=== PATIENT | female | born 1950 | race Caucasian/White ===

== ENCOUNTER 2022-09-21 15:18 | Inpatient (IN) | payer OTHER ==
[2022-09-21] MEDS ORDERED: Nitroglycerin 2% Ointment 1 INCH/1 GM Packet ONE (15:53)
[2022-09-21] MEDS ORDERED: Aspirin Chewable 81 MG TAB ONE ×2 (15:53→15:55)
[2022-09-21 16:09] LABS: #Eosinphils 0.1 thou/uL (0.0-0.7); #Lymphocytes 2.1 thou/uL (1.20-3.40); #Monocytes 0.5 thou/uL (0.11-0.59); #Neutrophils 6.5 thou/uL (1.40-6.50); %Basophils 0.4 % (0.0-1.0); %Eosinophils 1.2 % (0.0-10.0); %Monocytes 5.4 % (0.0-10.0); %Neutrophils 70.1 % (42.0-75.0); Hemoglobin 16.6 g/dL (12.0-16.0); Mean Corpuscular HGB CONC 34.9 g/dL (32.0-36.0); Mean Corpuscular Hemoglobin 32.3 pg (27.0-31.0); Mean Corpuscular Volume 92.4 fl (78.0-98.0); Platelet Count 225 10x3/uL (130-400); RBC Distribution Width 13.1 % (11.5-14.5); Red Blood Cell (RBC) Count 5.14 mill/uL (4.20-5.40); White Blood Cell (WBC) Count 9.3 10x3/uL (4.8-10.8)
[2022-09-21 16:31] LABS: ALT (SGPT) 30 U/L (8-55); AST (SGOT) 27 U/L (5-34); Albumin 5.2 g/dL (3.4-4.8); Alkaline Phosphatase 103 U/L (40-110); Anion Gap 15 mmol/L (10-20); BUN (Urea Nitrogen) 18 mg/dL (9.8-20.1); Bilirubin, Total 1.5 mg/dL (0.2-1.2); CK (CPK) 165 U/L (29-168); Calc. Creatinine Clearance 0 mL/min (70-130); Calcium 9.9 mg/dL (7.8-10.44); Carbon Dioxide 25 mmol/L (23-31); Chloride 102 mmol/L (98-107); Estimated GFR 83; Globulin 3.2 g/dL (2.4-3.5); Glucose 114 mg/dL (83-110); Lipase 8 U/L (8-78); Potassium 3.6 mmol/L (3.5-5.1); Protein, Total 8.4 g/dL (5.8-8.1); Sodium 138 mmol/L (136-145)
[2022-09-21 16:59] LABS: CKMB 9.5 ng/mL (0-6.6)
[2022-09-21] MEDS ORDERED: Acetaminophen 325 MG TAB PO PRN (17:00)
[2022-09-21] MEDS ORDERED: Ondansetron ODT 4 MG TAB PO PRN (17:00)
[2022-09-21] MEDS ORDERED: Senokot S 8.6-50 MG TAB PO PRN (17:00)
[2022-09-21] MEDS ORDERED: hydrALAZINE 20 MG/ML VIAL ONE (19:08)
[2022-09-21 20:34] VITALS: BMI 27.7
[2022-09-21] MEDS: Famotidine 20 MG TAB PO SCH (21:15)
[2022-09-21] MEDS: Atorvastatin Calcium 40 MG TAB PO SCH (21:15)
[2022-09-21] MEDS: Metoprolol Tartrate 50 MG TAB PO SCH (21:15)
[2022-09-21] MEDS: Sodium Chloride 0.9% 1,000 ML IV SCH ×2 (21:16→21:17)
[2022-09-21] MEDS ORDERED: cloNIDine 0.2 MG TAB PO SCH (21:45)
[2022-09-21 22:10] LABS: Critical Call Chem Troponin I RESULT DECREASING
[2022-09-21] MEDS: Temazepam 15 MG CAP PO PRN (22:52)
[2022-09-22 00:44] LABS: Critical Call Chem Troponin I RESULT DECREASING; Troponin I 0.567 ng/mL (< 0.028)
[2022-09-22 05:26] LABS: #Basophils 0.1 thou/uL (0.0-0.2); #Eosinphils 0.1 thou/uL (0.0-0.7); #Lymphocytes 2.5 thou/uL (1.20-3.40); #Monocytes 0.6 thou/uL (0.11-0.59); #Neutrophils 3.4 thou/uL (1.40-6.50); %Basophils 0.9 % (0.0-1.0); %Eosinophils 1.8 % (0.0-10.0); %Lymphocytes 37.3 % (21.0-51.0); %Monocytes 9.1 % (0.0-10.0); %Neutrophils 50.9 % (42.0-75.0); Hemoglobin 13.8 g/dL (12.0-16.0); Mean Corpuscular HGB CONC 34.7 g/dL (32.0-36.0); Mean Corpuscular Hemoglobin 32.7 pg (27.0-31.0); Mean Corpuscular Volume 94.4 fl (78.0-98.0); Mean Platelet Volume 7.2 fL (7.4-10.4); Platelet Count 193 10x3/uL (130-400); RBC Distribution Width 12.9 % (11.5-14.5); Red Blood Cell (RBC) Count 4.21 mill/uL (4.20-5.40); White Blood Cell (WBC) Count 6.7 10x3/uL (4.8-10.8)
[2022-09-22] MEDS: Levothyroxine Sodium 25 MCG TAB PO SCH (05:55)
[2022-09-22 06:07] LABS: ALT (SGPT) 20 U/L (8-55); AST (SGOT) 18 U/L (5-34); Albumin 3.7 g/dL (3.4-4.8); Alkaline Phosphatase 72 U/L (40-110); Anion Gap 11 mmol/L (10-20); BUN (Urea Nitrogen) 19 mg/dL (9.8-20.1); Bilirubin, Total 1.1 mg/dL (0.2-1.2); Calc. Creatinine Clearance 72 mL/min (70-130); Calcium 8.7 mg/dL (7.8-10.44); Carbon Dioxide 22 mmol/L (23-31); Chloride 108 mmol/L (98-107); Estimated GFR 89; Globulin 2.1 g/dL (2.4-3.5); Glucose 120 mg/dL (83-110); Potassium 3.3 mmol/L (3.5-5.1); Protein, Total 5.8 g/dL (5.8-8.1); Sodium 138 mmol/L (136-145)
[2022-09-22] MEDS: cloNIDine 0.2 MG TAB PO SCH ×3 (08:09→21:43)
[2022-09-22] MEDS: Aspirin 81 mg Enteric Coated Tablet PO SCH (08:09)
[2022-09-22] MEDS: Famotidine 20 MG TAB PO SCH ×2 (08:09→21:43)
[2022-09-22] MEDS: Metoprolol Tartrate 50 MG TAB PO SCH (08:12)
[2022-09-22] MEDS ORDERED: Non-Formulary Item 1 EACH (Valsartan [Diovan] 320 MG) PO SCH (10:16)
[2022-09-22] MEDS ORDERED: Valsartan 80 MG TAB PO SCH (10:30)
[2022-09-22] MEDS ORDERED: Communication Order-Pharmacy FS SCH (13:15)
[2022-09-22] MEDS ORDERED: Amlodipine 5 MG TAB PO SCH (13:45)
[2022-09-22] MEDS: Nitroglycerin 0.4 MG TAB (25 Tab Bottle) SL PRN ×3 (16:07→16:28)
[2022-09-22] MEDS ORDERED: Non-Formulary Item 1 EACH (Icosapent Ethyl 1 GM Capsule) PO SCH (17:00)
[2022-09-22] MEDS: Icosapent Ethyl 1 GM CAPSULE PO SCH (17:28)
[2022-09-22] MEDS ORDERED: Minoxidil 2.5 MG TAB PO SCH (18:45)
[2022-09-22] MEDS: Atorvastatin Calcium 40 MG TAB PO SCH (21:42)
[2022-09-22] MEDS: Temazepam 15 MG CAP PO PRN (21:46)
[2022-09-22] MEDS: Metoprolol Tartrate 25 MG TAB PO SCH (22:17)
[2022-09-23 04:59] LABS: #Basophils 0.1 thou/uL (0.0-0.2); #Eosinphils 0.1 thou/uL (0.0-0.7); #Lymphocytes 2.5 thou/uL (1.20-3.40); #Monocytes 0.6 thou/uL (0.11-0.59); %Basophils 0.9 % (0.0-1.0); %Eosinophils 1.5 % (0.0-10.0); %Lymphocytes 40.5 % (21.0-51.0); %Monocytes 9.3 % (0.0-10.0); %Neutrophils 47.8 % (42.0-75.0); Hemoglobin 12.4 g/dL (12.0-16.0); Mean Corpuscular HGB CONC 34.9 g/dL (32.0-36.0); Mean Corpuscular Hemoglobin 32.4 pg (27.0-31.0); Mean Corpuscular Volume 92.9 fl (78.0-98.0); Mean Platelet Volume 7.3 fL (7.4-10.4); Platelet Count 170 10x3/uL (130-400); RBC Distribution Width 12.5 % (11.5-14.5); Red Blood Cell (RBC) Count 3.81 mill/uL (4.20-5.40); White Blood Cell (WBC) Count 6.2 10x3/uL (4.8-10.8)
[2022-09-23] MEDS: Levothyroxine Sodium 25 MCG TAB PO SCH (05:14)
[2022-09-23 05:23] LABS: ALT (SGPT) 14 U/L (8-55); AST (SGOT) 16 U/L (5-34); Albumin 3.5 g/dL (3.4-4.8); Alkaline Phosphatase 66 U/L (40-110); Anion Gap 10 mmol/L (10-20); BUN (Urea Nitrogen) 23 mg/dL (9.8-20.1); Bilirubin, Total 0.9 mg/dL (0.2-1.2); Calc. Creatinine Clearance 71 mL/min (70-130); Calcium 8.6 mg/dL (7.8-10.44); Carbon Dioxide 25 mmol/L (23-31); Chloride 106 mmol/L (98-107); Estimated GFR 87; Glucose 113 mg/dL (83-110); Potassium 3.4 mmol/L (3.5-5.1); Protein, Total 5.5 g/dL (5.8-8.1); Sodium 138 mmol/L (136-145)
[2022-09-23] MEDS: Icosapent Ethyl 1 GM CAPSULE PO SCH (08:32)
[2022-09-23] MEDS: Aspirin 81 mg Enteric Coated Tablet PO SCH (08:37)
[2022-09-23] MEDS: cloNIDine 0.2 MG TAB PO SCH (08:37)
[2022-09-23] MEDS: Metoprolol Tartrate 25 MG TAB PO SCH (08:38)
[2022-09-23] MEDS: Famotidine 20 MG TAB PO SCH (08:38)
[2022-09-23] MEDS ORDERED: Non-Formulary Item 1 EACH (Valsartan [Diovan] 320 MG Tablet) PO SCH (09:00)
[2022-09-23] MEDS ORDERED: Minoxidil 2.5 MG TAB PO SCH (09:00)
[2022-09-23] MEDS ORDERED: Amlodipine 5 MG TAB PO SCH (09:00)
[2022-09-23] MEDS ORDERED: Valsartan 80 MG TAB PO SCH (09:00)
[2022-09-23 13:38] VITALS: BP 141/66; TEMP 98.8
[2022-09-23] MEDS ORDERED: cloNIDine 0.2 MG TAB PO SCH (15:00)
[2022-09-23] MEDS ORDERED: ALPRAZolam 0.5 MG TAB PO SCH (21:00)
== END 2022-09-23 16:05 | disposition home or self-care (01) | DRG 282 ==
LOC: ERS 15:18 → ERHOLD 17:04 → 2SW 20:06
PROVIDERS: ADMIT Student in an Organized Health Care Education/Training Program; ATTEND Student in an Organized Health Care Education/Training Program
DX: I21.4 Non-ST elevation (NSTEMI) myocardial infarction (principal); Z20.822 Contact with and (suspected) exposure to COVID-19; I10 Essential (primary) hypertension; D75.1 Secondary polycythemia; F41.1 Generalized anxiety disorder; Z96.653 Presence of artificial knee joint, bilateral; G47.33 Obstructive sleep apnea (adult) (pediatric); I16.0 Hypertensive urgency; E78.5 Hyperlipidemia, unspecified; Z88.2 Allergy status to sulfonamides; Z82.49 Family history of ischemic heart disease and other diseases of the circulatory system; Z79.82 Long term (current) use of aspirin; Z79.899 Other long term (current) drug therapy; Z79.890 Hormone replacement therapy; Z90.710 Acquired absence of both cervix and uterus; Z90.721 Acquired absence of ovaries, unilateral; Z82.3 Family history of stroke; Z85.038 Personal history of other malignant neoplasm of large intestine
CPT/HCPCS: 36415; 71045; 80053; 82550; 82553; 83690; 83880; 84484; 85025; 93005; 96372; 96374; J0360; J1650; J7050; U0003; U0005

== ENCOUNTER 2022-10-02 03:43 | Inpatient (IN) | payer OTHER, MEDICARE ==
[2022-10-02 04:28] LABS: #Eosinphils 0.1 thou/uL (0.0-0.7); #Lymphocytes 1.4 thou/uL (1.20-3.40); #Monocytes 0.7 thou/uL (0.11-0.59); #Neutrophils 11.7 thou/uL (1.40-6.50); %Basophils 0.3 % (0.0-1.0); %Eosinophils 0.4 % (0.0-10.0); %Neutrophils 84.3 % (42.0-75.0); Mean Corpuscular HGB CONC 34.6 g/dL (32.0-36.0); Mean Corpuscular Hemoglobin 31.7 pg (27.0-31.0); Mean Corpuscular Volume 91.6 fl (78.0-98.0); Mean Platelet Volume 7.3 fL (7.4-10.4); Platelet Count 246 10x3/uL (130-400); Red Blood Cell (RBC) Count 4.42 mill/uL (4.20-5.40); White Blood Cell (WBC) Count 13.9 10x3/uL (4.8-10.8)
[2022-10-02 04:50] LABS: ALT (SGPT) 43 U/L (8-55); AST (SGOT) 22 U/L (5-34); Albumin 4.6 g/dL (3.4-4.8); Alkaline Phosphatase 96 U/L (40-110); Anion Gap 15 mmol/L (10-20); BUN (Urea Nitrogen) 23 mg/dL (9.8-20.1); Bilirubin, Total 0.8 mg/dL (0.2-1.2); Calc. Creatinine Clearance 0 mL/min (70-130); Calcium 9.8 mg/dL (7.8-10.44); Carbon Dioxide 25 mmol/L (23-31); Chloride 102 mmol/L (98-107); Estimated GFR 77; Globulin 2.6 g/dL (2.4-3.5); Glucose 130 mg/dL (83-110); Lipase 10 U/L (8-78); Potassium 3.5 mmol/L (3.5-5.1); Protein, Total 7.2 g/dL (5.8-8.1); Sodium 138 mmol/L (136-145)
[2022-10-02] MEDS ORDERED: Nitroglycerin 2% Ointment 1 INCH/1 GM Packet ONE (05:30)
[2022-10-02] MEDS ORDERED: Ondansetron PF 4 MG/2 ML Vial ONE (05:30)
[2022-10-02] MEDS ORDERED: Aspirin Chewable 81 MG TAB ONE (05:30)
[2022-10-02 05:38] LABS: CKMB 1.9 ng/mL (0-6.6)
[2022-10-02 05:50] LABS: Bilirubin Negative (Negative); Blood, Urine Negative (Negative); Clarity Turbid (Clear); Glucose, Urine (Dipstick) Normal (Negative); Ketone, Urine Negative (Negative); Leukocyte Negative Leu/uL (Negative); Nitrite Negative (Negative); Protein, Urine (Dipstick) Negative (Neg-Trace); Specific Gravity, Urine 1.008 (1.002-1.036); Urobilinogen Normal mg/dL (Less than 2); pH, Urine 7.5 (5.0-9.0)
[2022-10-02 08:25] LABS: Critical Call Chem Troponin I RESULT DECREASING; Troponin I 1.293 ng/mL (< 0.028)
[2022-10-02] MEDS ORDERED: Nitroglycerin 0.4 MG TAB (25 Tab Bottle) SL PRN (09:13)
[2022-10-02] MEDS ORDERED: Heparin 10,000 UNITS/ 10 ML VIAL SLOW IVP SCH (09:15)
[2022-10-02] MEDS ORDERED: Heparin 25,000 units/D5W 500 ML IVPB SCH (09:15)
[2022-10-02 09:55] LABS: Hemoglobin 15.1 g/dL (12.0-16.0); Platelet Count 284 10x3/uL (130-400)
[2022-10-02 10:38] LABS: Troponin I 1.433 ng/mL (< 0.028)
[2022-10-02] MEDS ORDERED: Amlodipine 5 MG TAB PO SCH (11:00)
[2022-10-02] MEDS ORDERED: Minoxidil 2.5 MG TAB PO SCH (11:00)
[2022-10-02] MEDS ORDERED: Valsartan 80 MG TAB PO SCH (11:00)
[2022-10-02] MEDS ORDERED: Metoprolol Tartrate 25 MG TAB PO SCH ×2 (11:00→21:00)
[2022-10-02 12:36] VITALS: BMI 28.0
[2022-10-02] MEDS: cloNIDine 0.1 MG TAB PO SCH ×2 (15:51→19:47)
[2022-10-02] MEDS ORDERED: Communication Order-Pharmacy FS SCH (16:00)
[2022-10-02] MEDS ORDERED: Atorvastatin Calcium 40 MG TAB PO SCH (21:00)
[2022-10-03] MEDS: cloNIDine 0.1 MG TAB PO SCH ×2 (05:14→15:46)
[2022-10-03] MEDS: Sodium Chloride 0.9% 1,000 ML IV SCH ×2 (05:18→19:20)
[2022-10-03 05:23] LABS: Cardiac Risk 3.4 (Less than 4.5)
[2022-10-03] MEDS ORDERED: Levothyroxine Sodium 25 MCG TAB PO SCH (06:00)
[2022-10-03] MEDS ORDERED: Heparin 10,000 UNITS/ 10 ML VIAL ONE (06:27)
[2022-10-03] MEDS ORDERED: Verapamil 5 MG/2 ML VIAL ONE ×2 (06:27→06:38)
[2022-10-03] MEDS ORDERED: Lidocaine 1% (PF) 30 ML VIAL ONE (06:28)
[2022-10-03] MEDS ORDERED: Nitroglycerin 100MG/250ML BOT 250 ML ONE (06:28)
[2022-10-03] MEDS ORDERED: Midazolam HCl 2 mg/2 ml Vial ONE (06:30)
[2022-10-03] MEDS ORDERED: FENTANYL 50 MCG/ML 1 ML VIAL ONE (06:30)
[2022-10-03] MEDS ORDERED: Atropine Sulfate 1 mg/10 ml Syringe ONE (07:43)
[2022-10-03] MEDS ORDERED: TICAGRELOR 90 MG TABLET ONE ×2 (07:51)
[2022-10-03] MEDS ORDERED: TICAGRELOR 90 MG TABLET PO SCH ×2 (08:58→21:00)
[2022-10-03] MEDS ORDERED: Aspirin 81 mg Enteric Coated Tablet PO SCH (09:00)
[2022-10-03] MEDS ORDERED: Minoxidil 2.5 MG TAB PO SCH (09:00)
[2022-10-03] MEDS ORDERED: Amlodipine 10 MG TAB PO SCH (09:00)
[2022-10-03] MEDS ORDERED: Aspirin Chewable 81 MG TAB PO SCH (09:00)
[2022-10-03] MEDS ORDERED: Valsartan 80 MG TAB PO SCH (09:00)
[2022-10-03 19:07] VITALS: BP 140/65; TEMP 98.9
[2022-10-05] MEDS ORDERED: FLU VACC QS2022-23(65YR UP)/PF 240 MCG/0.7 ML SYRINGE IM ONE (16:00)
== END 2022-10-03 19:52 | disposition home or self-care (01) | DRG 247 ==
LOC: ERS 03:43 → ERHOLD 05:54 → 2SW 11:44
PROVIDERS: ADMIT Internal Medicine; ATTEND Internal Medicine
PROC: 027136Z Dilation of Coronary Artery, Two Arteries with Three Drug-eluting Intraluminal Devices, Percutaneous Approach (ICD-10-PCS; principal; 2022-10-03)
PROC: 02C03ZZ Extirpation of Matter from Coronary Artery, One Artery, Percutaneous Approach (ICD-10-PCS; 2022-10-03)
PROC: 4A023N7 Measurement of Cardiac Sampling and Pressure, Left Heart, Percutaneous Approach (ICD-10-PCS; 2022-10-03)
PROC: B2151ZZ Fluoroscopy of Left Heart using Low Osmolar Contrast (ICD-10-PCS; 2022-10-03)
PROC: B2111ZZ Fluoroscopy of Multiple Coronary Arteries using Low Osmolar Contrast (ICD-10-PCS; 2022-10-03)
DX: I21.4 Non-ST elevation (NSTEMI) myocardial infarction (principal); Z20.822 Contact with and (suspected) exposure to COVID-19; I25.10 Atherosclerotic heart disease of native coronary artery without angina pectoris; I10 Essential (primary) hypertension; E78.5 Hyperlipidemia, unspecified; R11.0 Nausea; R00.1 Bradycardia, unspecified; Z88.2 Allergy status to sulfonamides; Z79.899 Other long term (current) drug therapy; Z79.82 Long term (current) use of aspirin
CPT/HCPCS: 36415; 74176; 80053; 80061; 81003; 82550; 82553; 83690; 84484; 85025; 85347; 85730; 93005; 93010; 96372; 96374; C1757; C1769; C1874; C1887; J0461; J1644; J1650; J2001; J2250; J2405; J3010; J7050; U0003; U0005

== ENCOUNTER 2023-01-24 19:19 | Inpatient (IN) | payer MEDICARE, OTHER ==
[2023-01-24 20:00] LABS: #Eosinphils 0.1 thou/uL (0.0-0.7); #Monocytes 0.6 thou/uL (0.11-0.59); #Neutrophils 6.8 thou/uL (1.40-6.50); %Basophils 0.3 % (0.0-1.0); %Eosinophils 0.6 % (0.0-10.0); %Monocytes 6.6 % (0.0-10.0); %Neutrophils 77.2 % (42.0-75.0); Hemoglobin 12.8 g/dL (12.0-16.0); Mean Corpuscular Hemoglobin 28.9 pg (27.0-31.0); Mean Corpuscular Volume 84.9 fl (78.0-98.0); Mean Platelet Volume 9.7 fL (7.4-10.4); Platelet Count 200 10x3/uL (130-400); RBC Distribution Width 13.2 % (11.5-14.5); Red Blood Cell (RBC) Count 4.43 mill/uL (4.20-5.40); White Blood Cell (WBC) Count 8.8 10x3/uL (4.8-10.8)
[2023-01-24] MEDS ORDERED: hydrALAZINE 20 MG/ML VIAL ONE (20:24)
[2023-01-24 20:26] LABS: ALT (SGPT) 20 U/L (8-55); AST (SGOT) 16 U/L (5-34); Albumin 4.6 g/dL (3.4-4.8); Alkaline Phosphatase 74 U/L (40-110); Anion Gap 14 mmol/L (10-20); BUN (Urea Nitrogen) 17 mg/dL (9.8-20.1); Calc. Creatinine Clearance 0 mL/min (70-130); Calcium 9.6 mg/dL (7.8-10.44); Carbon Dioxide 26 mmol/L (23-31); Chloride 104 mmol/L (98-107); Estimated GFR 77; Globulin 2.5 g/dL (2.4-3.5); Glucose 102 mg/dL (83-110); Potassium 3.3 mmol/L (3.5-5.1); Protein, Total 7.1 g/dL (5.8-8.1); Sodium 141 mmol/L (136-145)
[2023-01-24] MEDS ORDERED: Potassium Chloride 20 MEQ TAB ONE (21:14)
[2023-01-24] MEDS ORDERED: Potassium Bicarbonate/Cit Ac 20 MEQ TAB PO SCH (21:30)
[2023-01-24] MEDS ORDERED: LORazepam 2 MG/ML SYR.(CARPUJECT) ONE (22:04)
[2023-01-24 23:44] VITALS: BMI 27.5
[2023-01-25] MEDS ORDERED: Nitroglycerin 0.4 MG TAB (25 Tab Bottle) SL PRN (00:34)
[2023-01-25] MEDS ORDERED: Senokot S 8.6-50 MG TAB PO PRN (00:35)
[2023-01-25] MEDS ORDERED: Calcium Carbonate 500 MG ChewTAB PO PRN (00:35)
[2023-01-25] MEDS ORDERED: Ondansetron ODT 4 MG TAB PO PRN (00:35)
[2023-01-25 05:15] LABS: #Eosinphils 0.1 thou/uL (0.0-0.7); #Monocytes 0.6 thou/uL (0.11-0.59); #Neutrophils 6.3 thou/uL (1.40-6.50); %Basophils 0.5 % (0.0-1.0); %Eosinophils 0.7 % (0.0-10.0); %Lymphocytes 19.7 % (21.0-51.0); %Monocytes 7.2 % (0.0-10.0); %Neutrophils 71.3 % (42.0-75.0); Hemoglobin 12.9 g/dL (12.0-16.0); Mean Corpuscular HGB CONC 35.7 g/dL (32.0-36.0); Mean Corpuscular Hemoglobin 30.1 pg (27.0-31.0); Mean Corpuscular Volume 84.3 fl (78.0-98.0); Mean Platelet Volume 9.7 fL (7.4-10.4); Platelet Count 188 10x3/uL (130-400); RBC Distribution Width 13.2 % (11.5-14.5); Red Blood Cell (RBC) Count 4.28 mill/uL (4.20-5.40); White Blood Cell (WBC) Count 8.8 10x3/uL (4.8-10.8)
[2023-01-25 05:39] LABS: Anion Gap 13 mmol/L (10-20); BUN (Urea Nitrogen) 14 mg/dL (9.8-20.1); Calc. Creatinine Clearance 66 mL/min (70-130); Calcium 9.2 mg/dL (7.8-10.44); Carbon Dioxide 25 mmol/L (23-31); Chloride 105 mmol/L (98-107); Estimated GFR 81; Glucose 107 mg/dL (83-110); Potassium 3.2 mmol/L (3.5-5.1); Sodium 140 mmol/L (136-145)
[2023-01-25] MEDS: Levothyroxine Sodium 25 MCG TAB PO SCH (06:05)
[2023-01-25] MEDS ORDERED: Potassium Chloride 20 MEQ TAB PO SCH (08:30)
[2023-01-25] MEDS ORDERED: Potassium Bicarbonate/Cit Ac 20 MEQ TAB PO SCH (09:00)
[2023-01-25] MEDS ORDERED: Amlodipine 5 MG TAB PO SCH (09:00)
[2023-01-25] MEDS: Valsartan 80 MG TAB PO SCH (09:55)
[2023-01-25] MEDS: Aspirin 81 mg Enteric Coated Tablet PO SCH (09:56)
[2023-01-25] MEDS: Famotidine 20 MG TAB PO SCH (09:56)
[2023-01-25] MEDS: Clopidogrel Bisulfate 75 MG TAB PO SCH (09:56)
[2023-01-25] MEDS: Hydrochlorothiazide 25 MG TAB PO SCH (09:56)
[2023-01-25] MEDS: Acetaminophen 325 MG TAB PO PRN (09:56)
[2023-01-25] MEDS: cloNIDine 0.2 MG TAB PO SCH ×4 (09:56→21:27)
[2023-01-25] MEDS: Minoxidil 2.5 MG TAB PO SCH ×2 (10:01→19:15)
[2023-01-25] MEDS: hydrOXYzine 25 MG TAB PO PRN (15:12)
[2023-01-25] MEDS ORDERED: Carvedilol 6.25 MG TAB PO SCH (17:00)
[2023-01-25] MEDS: Carvedilol 6.25 MG TAB PO SCH (18:02)
[2023-01-25] MEDS: Atorvastatin Calcium 40 MG TAB PO SCH (20:22)
[2023-01-25] MEDS ORDERED: hydrOXYzine 10 MG TAB PO SCH (21:00)
[2023-01-26] MEDS: Levothyroxine Sodium 25 MCG TAB PO SCH (05:44)
[2023-01-26] MEDS: Valsartan 80 MG TAB PO SCH (08:06)
[2023-01-26] MEDS: Hydrochlorothiazide 25 MG TAB PO SCH (08:06)
[2023-01-26] MEDS: Carvedilol 6.25 MG TAB PO SCH ×2 (08:07→16:52)
[2023-01-26] MEDS: cloNIDine 0.2 MG TAB PO SCH ×3 (08:08→19:57)
[2023-01-26] MEDS: Famotidine 20 MG TAB PO SCH (08:08)
[2023-01-26] MEDS: Clopidogrel Bisulfate 75 MG TAB PO SCH (08:08)
[2023-01-26] MEDS: Aspirin 81 mg Enteric Coated Tablet PO SCH (08:08)
[2023-01-26] MEDS: Minoxidil 2.5 MG TAB PO SCH ×2 (08:17→20:00)
[2023-01-26] MEDS ORDERED: Amlodipine 10 MG TAB PO SCH (09:00)
[2023-01-26] MEDS ORDERED: Amlodipine 5 MG TAB PO SCH (09:45)
[2023-01-26] MEDS ORDERED: FELODIPINE ER 2.5 MG TAB PO SCH (10:15)
[2023-01-26] MEDS: hydrALAZINE 20 MG/ML VIAL SLOW IVP PRN (12:29)
[2023-01-26] MEDS ORDERED: hydrALAZINE 20 MG/ML VIAL SLOW IVP SCH (14:00)
[2023-01-26] MEDS: Acetaminophen 325 MG TAB PO PRN (14:08)
[2023-01-26] MEDS: hydrOXYzine 25 MG TAB PO PRN (14:09)
[2023-01-26] MEDS: Atorvastatin Calcium 40 MG TAB PO SCH (19:57)
[2023-01-26] MEDS: hydrALAZINE 25 MG TAB PO SCH (19:59)
[2023-01-27 04:53] LABS: Potassium 3.6 mmol/L (3.5-5.1)
[2023-01-27] MEDS: Levothyroxine Sodium 25 MCG TAB PO SCH (06:15)
[2023-01-27] MEDS ORDERED: Potassium Chloride 20 MEQ TAB PO SCH (07:45)
[2023-01-27] MEDS: hydrALAZINE 25 MG TAB PO SCH ×2 (08:46→19:44)
[2023-01-27] MEDS: Valsartan 80 MG TAB PO SCH (08:46)
[2023-01-27] MEDS: Carvedilol 6.25 MG TAB PO SCH ×2 (08:46→16:32)
[2023-01-27] MEDS: Aspirin 81 mg Enteric Coated Tablet PO SCH (08:47)
[2023-01-27] MEDS: Clopidogrel Bisulfate 75 MG TAB PO SCH (08:47)
[2023-01-27] MEDS: Minoxidil 2.5 MG TAB PO SCH (08:48)
[2023-01-27] MEDS: cloNIDine 0.2 MG TAB PO SCH ×3 (08:48→19:45)
[2023-01-27] MEDS: Hydrochlorothiazide 25 MG TAB PO SCH (08:49)
[2023-01-27] MEDS: Famotidine 20 MG TAB PO SCH (08:49)
[2023-01-27] MEDS: hydrOXYzine 25 MG TAB PO PRN (08:49)
[2023-01-27] MEDS: FELODIPINE ER 2.5 MG TAB PO SCH (08:50)
[2023-01-27] MEDS ORDERED: Amlodipine 5 MG TAB PO SCH (09:00)
[2023-01-27] MEDS: ALPRAZolam 0.25 MG TAB PO SCH ×3 (09:52→20:33)
[2023-01-27] MEDS: tiZANidine HCl 4 MG TAB PO SCH (19:44)
[2023-01-27] MEDS: Atorvastatin Calcium 40 MG TAB PO SCH (19:44)
[2023-01-28] MEDS: Levothyroxine Sodium 25 MCG TAB PO SCH (04:09)
[2023-01-28 05:36] LABS: Anion Gap 12 mmol/L (10-20); BUN (Urea Nitrogen) 22 mg/dL (9.8-20.1); Calc. Creatinine Clearance 56 mL/min (70-130); Carbon Dioxide 23 mmol/L (23-31); Chloride 106 mmol/L (98-107); Estimated GFR 68; Glucose 107 mg/dL (83-110); Potassium 3.7 mmol/L (3.5-5.1); Sodium 137 mmol/L (136-145)
[2023-01-28] MEDS: Carvedilol 6.25 MG TAB PO SCH ×2 (09:45→17:41)
[2023-01-28] MEDS: ALPRAZolam 0.25 MG TAB PO SCH ×3 (09:46→20:21)
[2023-01-28] MEDS: Famotidine 20 MG TAB PO SCH (09:46)
[2023-01-28] MEDS: Aspirin 81 mg Enteric Coated Tablet PO SCH (09:46)
[2023-01-28] MEDS: Clopidogrel Bisulfate 75 MG TAB PO SCH (09:46)
[2023-01-28] MEDS: tiZANidine HCl 4 MG TAB PO SCH ×2 (09:47→20:21)
[2023-01-28] MEDS: Hydrochlorothiazide 25 MG TAB PO SCH (09:47)
[2023-01-28] MEDS: Valsartan 80 MG TAB PO SCH (09:47)
[2023-01-28] MEDS: hydrALAZINE 25 MG TAB PO SCH ×2 (09:47→20:21)
[2023-01-28] MEDS: cloNIDine 0.2 MG TAB PO SCH ×3 (09:48→20:21)
[2023-01-28] MEDS: FELODIPINE ER 2.5 MG TAB PO SCH (09:53)
[2023-01-28] MEDS ORDERED: Spironolactone 25 MG TAB PO SCH (10:15)
[2023-01-28] MEDS ORDERED: Dexamethasone 1 MG TAB PO SCH ×2 (20:00)
[2023-01-28] MEDS: Atorvastatin Calcium 40 MG TAB PO SCH (20:21)
[2023-01-29] MEDS: Levothyroxine Sodium 25 MCG TAB PO SCH (03:34)
[2023-01-29] MEDS: hydrALAZINE 20 MG/ML VIAL SLOW IVP PRN (03:34)
[2023-01-29] MEDS: Carvedilol 6.25 MG TAB PO SCH (05:10)
[2023-01-29 05:39] LABS: Anion Gap 14 mmol/L (10-20); BUN (Urea Nitrogen) 19 mg/dL (9.8-20.1); Calc. Creatinine Clearance 63 mL/min (70-130); Calcium 9.4 mg/dL (7.8-10.44); Carbon Dioxide 23 mmol/L (23-31); Chloride 102 mmol/L (98-107); Estimated GFR 78; Glucose 125 mg/dL (83-110); Potassium 4.1 mmol/L (3.5-5.1); Sodium 135 mmol/L (136-145)
[2023-01-29] MEDS ORDERED: Spironolactone 25 MG TAB PO SCH (08:00)
[2023-01-29] MEDS: ALPRAZolam 0.25 MG TAB PO SCH (08:29)
[2023-01-29] MEDS: Aspirin 81 mg Enteric Coated Tablet PO SCH (08:29)
[2023-01-29] MEDS: Famotidine 20 MG TAB PO SCH (08:30)
[2023-01-29] MEDS: Clopidogrel Bisulfate 75 MG TAB PO SCH (08:30)
[2023-01-29] MEDS: cloNIDine 0.2 MG TAB PO SCH (08:30)
[2023-01-29] MEDS: tiZANidine HCl 4 MG TAB PO SCH (08:31)
[2023-01-29] MEDS: Hydrochlorothiazide 25 MG TAB PO SCH (08:31)
[2023-01-29] MEDS: Valsartan 80 MG TAB PO SCH (08:32)
[2023-01-29] MEDS: FELODIPINE ER 2.5 MG TAB PO SCH (08:37)
[2023-01-29] MEDS ORDERED: hydrALAZINE 25 MG TAB PO SCH (09:00)
[2023-01-29 12:03] VITALS: BP 146/68; TEMP 97.6
[2023-02-06] MEDS ORDERED: Ergocalciferol 1.25 MG(50,000 UNITS) CAP PO SCH (09:00)
== END 2023-01-29 13:12 | disposition home or self-care (01) | DRG 305 ==
LOC: ERS 19:19 → 2SW 22:21 → OBSVTOIN 01-26 09:32
PROVIDERS: ADMIT Student in an Organized Health Care Education/Training Program; ATTEND Internal Medicine
DX: I16.0 Hypertensive urgency (principal); I10 Essential (primary) hypertension; E87.6 Hypokalemia; I25.10 Atherosclerotic heart disease of native coronary artery without angina pectoris; E03.9 Hypothyroidism, unspecified; Z96.651 Presence of right artificial knee joint; E78.5 Hyperlipidemia, unspecified; Z88.2 Allergy status to sulfonamides; Z79.890 Hormone replacement therapy; Z79.82 Long term (current) use of aspirin; Z79.899 Other long term (current) drug therapy; Z90.49 Acquired absence of other specified parts of digestive tract; Z90.710 Acquired absence of both cervix and uterus; Z88.8 Allergy status to other drugs, medicaments and biological substances
CPT/HCPCS: 36415; 76770; 80048; 80053; 82088; 82384; 82530; 82533; 83835; 84132; 84244; 84443; 84484; 85025; 93005; 93975; 96374; 96375; G0378; J0360; J2060; J8540